=== PATIENT | female | born 1960 | race Caucasian/White ===

== ENCOUNTER 2016-10-07 19:19 | Emergency (ER) | payer MEDICARE, MEDICAID ==
[~2016-10-07] VITALS: Ht 180.3 cm; Wt 104.3 kg
[~2016-10-07 19:19] MED LIST: ASPIRIN EC81 MG PO; CARBAMAZEPINE100 MG PO; NAPROSYN500 MG PO; NEURONTIN300 MG PO; NORCO 5-325 TA1 EACH PO; PROMETHAZINE-COD5 ML PO; TAMIFLU75 MG PO; ZOLOFT50 MG PO; [UNRECOGNIZED DRUG - OTHER]
[2016-10-07] MEDS ORDERED: PHENYTOIN SODI300 MG PO (19:40)
[2016-10-07] MEDS ORDERED: OCREVUS300 MG/10 IV (19:41)
[2016-10-07] MEDS ORDERED: PERCOCET 5-3251 EACH PO (20:16)
== END 2016-10-07 20:48 | disposition home or self-care (01) ==
LOC: ED 19:19
DX: S82.432A Displaced oblique fracture of shaft of left fibula, initial encounter for closed fracture (principal); S82.831A Other fracture of upper and lower end of right fibula, initial encounter for closed fracture; Z79.899 Other long term (current) drug therapy; Z79.82 Long term (current) use of aspirin; Z98.51 Tubal ligation status; Z87.891 Personal history of nicotine dependence; W01.0XXA Fall on same level from slipping, tripping and stumbling without subsequent striking against object, initial encounter
CPT/HCPCS: 73610; 99283

== ENCOUNTER 2016-11-25 09:45 | Day surgery (SDC) | payer MEDICARE, MEDICAID ==
[~2016-11-25] VITALS: Ht 180.3 cm; Wt 99.8 kg
[~2016-11-25 09:45] MED LIST changes: +OCREVUS300 MG/10 IV; +PERCOCET 5-3251 EACH PO; +PHENYTOIN SODI300 MG PO
--- NOTE | 2016-11-25 13:07 | NUR ---
11/25/16 1307 Ofelia Tobar 1301-PATIENT ARRIVED TO PACU ON 6L MASK O2 SAT 100% PATIENT REACTIVE WITH EYES OPEN AND FALLS BACK ASLEEP. DRESSING CDI WITH BOOT IN PLACE. ICE APPLIED. 1306-PATIENT AWAKE DENIES PAIN OR NAUSEA ABLE TO WIGGLE TOES, WARM
[2016-11-25] MEDS ORDERED: HYDROCODON-ACE1 EA11 PO (13:08)
--- NOTE | 2016-11-27 10:52 | OR ---
[facility] [address], [place] [address] Signed DATE OF PROCEDURE: 11/25/16 PREOPERATIVE DIAGNOSIS: Nonunion, left lateral malleolus. POSTOPERATIVE DIAGNOSIS: Nonunion, left lateral malleolus. PROCEDURE PERFORMED: Open reduction and internal fixation, left ankle. SURGEON: Amaris Ribeiro MD. OB GYN PHYSICIAN ASSISTANT: Jacklyn Jolly PA-C. Jacklyn was present for the entire procedure, was critical in positioning, retraction, and wound closure. ANESTHESIA: General. TOURNIQUET TIME: 37 minutes. IMPLANT: Seven-hole 1/3rd tubular plate with 7 screws. BRIEF HISTORY Yohan is a 55-year-old female wi th bilateral ankle fractures. Due to her significant MS, we elected to treat these non-operatively. The right wound is healing well; however, the left showed no evidence of any healing on x-ray. Risks and benefits of operative discussed with her. She elected to proceed. DESCRIPTION OF PROCEDURE Once consent was obtained, she was taken to operating room, and after adequate anesthesia, was placed on operating table. All downside pressure points well padded. The left leg was placed in well-padded proximal thigh tourniquet. Prepped and draped in a standard sterile fashion. The leg was exsanguinated using Esmarch bandage. Tourniquet inflated to 250 mm initially; however, she continued to have bleeding, so we released the tourniquet and re-Esmarch up to 300 mm on t he tourniquet. The incision was made through the skin and subcutaneous tissue, and centered over the fracture. This was taken down to the periosteum and the periosteum was elevated anteriorly and posteriorly. The nonunion was taken down using Dee and F r eer. The lateral malleolus was mobilized and reduced, held with a clamp. The plate was clamped to the lateral aspect of the lateral malleolus and centered. This was checked using image intensifier. Reduction of the mortise was good. The screws were then p l aced. We placed cortical screws proximally 1 cancellous screw where the bone was particularly soft and then 2 distal locking screws. We did get excellent fixation. The wound was closed again with antibiotic solution. Final radiograph showed good reduction and placement of the plate. Electronically Signed By: AMARIS RIBEIRO MD 11/27/16 1052 PATIENT NAME: YOHAN DYSON OPERATIVE REPORT DATE OF : 56 PHYSICIAN: AMARIS RIBEIRO MD REPORT #: [id number] REPORT IS CONFIDENTIAL AND NOT TO BE RELEASED WITHOUT AUTHORIZATION [address] [address] Signed Screw lengths were appropriate. The periosteum was then closed using 2-0 Monocryl, subcutaneous tissue with 2-0 Monocryl, and skin with dmitri. Wound dressed with Mepilex Ag dressing, ABD, and Allen wrap. She was placed back in a fracture boot and taken to recovery in satisfactory condition. All sponge, needle, and instrument counts were correct. Amaris Ribeiro MD BA/Thom /[id number] cc: Herson Escamilla MD Electronically Signed By: AMARIS RIBEIRO MD 11/27/16 1052 PATIENT NAME: YOHAN DYSON OPERATIVE REPORT DATE OF : 56 PHYSICIAN: AMARIS RIBEIRO MD REPORT #: [id number] REPORT IS CONFIDENTIAL AND NOT TO BE RELEASED WITHOUT AUTHORIZATION
== END 2016-11-25 16:15 | disposition home or self-care (01) ==
LOC: DS 09:45
PROVIDERS: Specialist
PROC: 0QSK0ZZ Reposition Left Fibula, Open Approach (ICD-10-PCS; principal; 2016-11-25 11:30)
DX: S82.62XA Displaced fracture of lateral malleolus of left fibula, initial encounter for closed fracture (principal); G35 Multiple sclerosis; F32.9 Major depressive disorder, single episode, unspecified; M81.0 Age-related osteoporosis without current pathological fracture; Z98.890 Other specified postprocedural states
CPT/HCPCS: 01480; 73600; C1713; J0690; J1100; J1170; J1885; J2250; J2704; J2795; J3010; J7120

== ENCOUNTER 2016-12-31 11:04 | Emergency (ER) | payer MEDICARE, MEDICAID ==
[~2016-12-31] VITALS: Ht 180.3 cm; Wt 99.8 kg
[~2016-12-31 11:04] MED LIST changes: +HYDROCODON-ACE1 EA11 PO
== END 2016-12-31 11:26 | disposition home or self-care (01) ==
LOC: ED 11:04
DX: M25.519 Pain in unspecified shoulder (principal); Z00.8 Encounter for other general examination

== ENCOUNTER 2022-11-27 16:06 | Emergency (ER) | payer MEDICARE, OTHER ==
[~2022-11-27] VITALS: Ht 180.3 cm; Wt 60.6 kg
[2022-11-27] MEDS ORDERED: KESIMPTA P20 MG/0.4 SQ (16:40)
[2022-11-27] MEDS ORDERED: OSTERA TABLET1 EACH PO (16:44)
[2022-11-27 17:26] LABS: INFLUENZA B NAA NEGATIVE (NEGATIVE); RESPIRATORY SYNCYTIAL VIR NAA NEGATIVE (NEGATIVE)
[2022-11-27 19:56] LABS: HEMATOCRIT 39.8 % (35.0-50.0); HEMOGLOBIN 13.4 g/dL (12.0-18.0); MCH 29.8 (27-36); MCHC 33.6 g/dl (30-36); MCV 88.4 fl (81-99); PLATELET COUNT 322 K/uL (140-440); RBC 4.51 M/ul (4.3-5.7); RDW 13.2 (10.5-15.0)
[2022-11-27 20:11] LABS: ALBUMIN 3.3 g/dL (3.4-5.0); ALBUMIN/GLOBULIN RATIO 0.72 (1.1-2.4); ANION GAP 17.2 (7-21); BILIRUBIN, TOTAL 1.1 ng/dL (0.2-1.0); BUN/CREATININE RATIO 20.31 (6.0-28.6); CALCIUM 9.2 mg/dL (8.5-10.1); CREATININE, SERUM 0.64 mg/dL (0.55-1.02); MAGNESIUM 1.8 mg/dL (1.8-2.4); POTASSIUM 3.2 mmol/L (3.5-5.1); PROTEIN, TOTAL 7.9 g/dL (6.4-8.2)
[2022-11-27 20:13] LABS: BANDS, MANUAL DIFF 9; LYMPHOCYTES, MANUAL DIFF 14; MONOCYTES, MANUAL DIFF 6; NEUTROPHILS, MANUAL DIFF 71
[2022-11-27] MEDS ORDERED: ONDANSETRON ODT8 MG PO (20:46)
[2022-11-27 21:20] VITALS: BP 159/88
== END 2022-11-27 21:05 | disposition home or self-care (01) ==
LOC: ED 16:06
PROVIDERS: Emergency Medicine; Family Medicine
DX: B34.9 Viral infection, unspecified (principal); Z20.822 Contact with and (suspected) exposure to COVID-19; Z87.891 Personal history of nicotine dependence; Z79.899 Other long term (current) drug therapy
CPT/HCPCS: 36415; 80053; 83735; 85025; 87502; 99283; A9270; J7121; U0002

== ENCOUNTER 2024-09-10 05:30 | Inpatient (IN) | payer MEDICARE, OTHER ==
[~2024-09-10] VITALS: Ht 180.3 cm; Wt 97.0 kg
[2024-09-10] VITALS (8 sets, daily range): BP systolic 142–171; BP diastolic 69–83
[~2024-09-10 05:30] MED LIST changes: +KESIMPTA P20 MG/0.4 SQ; +ONDANSETRON ODT8 MG PO; +VITAMIN D325 MCG PO
[2024-09-10] MEDS ORDERED: SODIUM CHLORIDE 0.9% 1,000 ML IV ONE ×2 (05:45→06:15)
[2024-09-10] MEDS ORDERED: MORPHINE SULFATE 4 MG/ML VIAL IV ONE (05:45)
[2024-09-10] MEDS ORDERED: PROCHLORPERAZINE EDISYLATE 10 MG/2 ML VIAL IV ONE (05:45)
[2024-09-10 05:52] LABS: BASOPHILS 0.3 % (0.1-1.2); EOSINOPHILS 0.1 % (0.7-5.8); LYMPHOCYTES 6.3 % (19.3-51.7); MCH 29.2 PG (25.6-32.2); MCHC 33.4 g/dL (32.2-35.5); MCV 87.3 fL (79.4-94.8); MONOCYTES 2.9 % (4.7-12.5); NEUTROPHILS 89.5 % (34.0-71.1); RBC 4.01 M/uL (3.93-5.22)
[2024-09-10 05:57] LABS: BLOOD/HGB, URINE TRACE-I (Negative); KETONE, URINE TRACE (Negative); LEUK ESTERASE, URINE MODERATE (negative); NITRITE, URINE POSITIVE (negative)
[2024-09-10 06:07] LABS: BACTERIA, URINE 4+ /hpf (negative); CASTS, URINE NONE SEEN \\lpf; CRYSTALS, URINE NONE SEEN (0-1+); EPITHELIAL CELLS, URINE SQUAMOUS 1+ /lpf (0-1+); REFLEX CULTURE, URINE Yes (No)
[2024-09-10 06:08] LABS: ALT (SGPT) 15.0 U/L (14-59); AST (SGOT) 18.0 U/L (15-37); GLOMERULAR FILTRATION RATE,EST 97.0 mL/min (>60); PROTEIN, TOTAL 6.7 g/dL (6.4-8.2); UREA NITROGEN 9.0 mg/dL (7-18)
[2024-09-10] MEDS ORDERED: ACETAMINOPHEN 325 MG TAB PO ONE (06:15)
[2024-09-10] MEDS ORDERED: SODIUM CHLORIDE 0.9% 1,000 ML IV SCH (08:30)
[2024-09-10] MEDS ORDERED: ACETAMINOPHEN 325 MG TAB PO PRN (08:30)
[2024-09-10] MEDS ORDERED: PROCHLORPERAZINE EDISYLATE 10 MG/2 ML VIAL IV PRN (08:30)
[2024-09-10] MEDS ORDERED: CARBAMAZEPINE200 M3 PO (08:41)
[2024-09-10] MEDS ORDERED: GABAPENTIN300 MG PO (08:42)
[2024-09-10] MEDS ORDERED: SERTRALINE HCL100 MG PO (08:43)
[2024-09-10] MEDS ORDERED: ENOXAPARIN SODIUM 40 MG/0.4 ML SYR SUB-Q SCH (09:00)
--- NOTE | 2024-09-10 09:06 | NUR ---
PT TO MEDSUR ROOM, [facility] AND MASS SPECTROSCOPIST. PT ABLE TO ANSWER HX QUESTIONS WITH ASSISTANCE FROM .
--- NOTE | 2024-09-10 10:36 | NUR ---
PUREWICK AND DEPEND IN PLACE. CALL LIGHT WITHIN REACH.
--- NOTE | 2024-09-10 10:45 | NUR ---
Spoke with Perla and her spouse Edinson. They live in a mobile home with ramps. Pt has MS and spouse has placed grab bars throughout the home. Pt has retracted area on her upper l lip that looks like a cleft lip. Per spouse this is a nerve issue and is also related to a medication she is taking. Per spouse he is disabled and stays with pt all day every day. Pt denies needs. They do use the food bank and food stamps. They deny other financial issues or safety concerns. Pt plans on dc to home when medically cleared of pyelonephritis and UTI. Pt requests a new wc as she uses one inside the home and one outside. Both are old and were purchased by the spouse. OT is in the room and feel pt would be better served with a custom fit wc due to her MS. OT assisted with an RX for the wc and required documentation to go to a [employer] company. Pt would like to use [employer]. Order for custom fit wc, OP therapy for fitting of wc, and OP visit for gait training completed. I called Dr. Us's office as per Deepali at [facility] ordered needs to be signed by the PCP. I will fax the correct paper work to Dr. Us, Dr. Miles cosigned all paperwork. I added the fax numbers to the face sheet sent to Dr. Us and requested when RX and orders for OP completed they fax all to [facility] [phone] [facility] [phone].
--- NOTE | 2024-09-10 11:25 | NUR ---
PHYSICAL THERAPY AT THE BEDSIDE. PT STATES NO CURRENT NEEDS, CALL LIGHT WITHIN REACH.
--- NOTE | 2024-09-10 11:31 | NUR ---
PATIENT IN BED AT THIS TIME. GAS WELDING EQUIPMENT MECHANIC PLACED NEW PUREWICK FOR PATIENT. CALL LIGHT WIHTIN REACH, NO FURTHER NEEDS AT THIS TIME.
--- NOTE | 2024-09-10 11:42 | NUR ---
PT NOT AVAILABLE FOR VISIT. PROVIDED PRAYER.
[2024-09-10] MEDS ORDERED: NEOSPORIN OIN28.3 GM TOP (11:46)
[2024-09-10] MEDS ORDERED: NAC600 MG PO (11:48)
[2024-09-10] MEDS ORDERED: BACLOFEN10 MG PO (11:48)
--- NOTE | 2024-09-10 11:48 | NUR ---
MED REC COMPLETE
[2024-09-10] MEDS ORDERED: PHARMACY RENAL DOSE ADJUSTMENT 1 DOSE MISC PO SCH (12:00)
--- NOTE | 2024-09-10 15:30 | NUR ---
PT TELLS THIS RN THAT HE BROUGHT PT HOME MEDICATIONS AND STATES, "I JUST GAVE HER NORMAL MEDICATIONS TO HER AND SHE TOOK THEM SINCE SHE HASN'T HAD THEM YET TODAY". THIS RN EDUCATES PT AND THAT MEDICATIONS NEED TO BE ADMINISTERED BY STAFF WHILE ADMITTED, PT AND VERBALIZE UNDERSTANDING AND PT STATES "I ONLY BROUGHT THE PILLS FOR THIS MORNING THAT SHE DIDN'T TAKE, SO I DON'T HAVE ANY OTHERS". THIS RN UPDATES DR. GARY MD STATES THAT PT AND HER STATED THAT THEY WOULD BRING HOME MEDICATIONS FOR PHARMACY TO VERIFY IN ORDER TO USE THE PT'S HOME MEDICATIONS RATHER THAN HOSPITAL PROVIDED. THIS RN SPEAKS WITH PT AND HER ABOUT BRINGING IN MEDICATIONS FOR VERIFICATION BY PHARMACY AND FOR STAFF TO GIVE PER ORDERS. PT AND STATE "WE CHANGED OUR MINDS AFTER WE TALKED TO THE DOCTOR, SO WE ACTUALLY WANT TO USE THE MEDICATIONS YOU GUYS HAVE HERE INSTEAD OF BRINGING HOME MEDS IN". THIS RN FURTHER EDUCATES PT AND HER ON IMPORTANCE OF NOT TAKING MEDICATIONS THAT ARE NOT ORDERED AND ARE NOT GIVEN BY STAFF WHILE INPATIENT FOR SAFETY REASONS. PT AND VERBALIZE UNDERSTANDING. MEDICATIONS THAT PT TOOK FROM HOME AT APPROXIMATELY 1510 ARE LISTED BELOW. CARBAMAZEPINE 400MG GABAPENTIN 600MG TYLENOL 1,000MG MULTIVITAMIN (X1)
--- NOTE | 2024-09-10 16:27 | NUR ---
UR CLINICAL REVIEW: 2 MN IKE, MEETS INPT FOR UTI, PYEONEPHRITIS WITH SEPSIS IV FLUIDS, IV ANTIBIOTICS, CULTURES, TREND LABS, LACTIC ACID 3.7 TO 2.8, CT POSITIVE FOR PYELONEPHRITIS MEDICARE INPT 09/10/24 @ 0824 ORDER MATCHES REG NO AUTH REQUIRED PER MEDICARE RULES PLAN TO DC TO HOME WHEN MEDICALLY READY.
--- NOTE | 2024-09-10 16:35 | NUR ---
DR. VEGA TO BEDSIDE.
[2024-09-10] MEDS ORDERED: BACLOFEN 10 MG TAB PO PRN (16:45)
--- NOTE | 2024-09-10 19:15 | NUR ---
REPORT RECEIVED FROM BESSIE MEAD. pt RESTING IN THE BED. BOARD UPDATED. pt DENIES ANY OTHER NEEDS AT THIS TIME. CALL LIGHT WITHIN REACH.
[2024-09-10] MEDS ORDERED: carBAMazepine 200 MG TAB PO SCH (21:00)
[2024-09-10] MEDS ORDERED: GABAPENTIN 600 MG TAB PO SCH (21:00)
--- NOTE | 2024-09-10 21:00 | NUR ---
ASSESSMENT AND VITAL SIGNS DONE. pt RESTING IN THE BED. WATER REFRESHED. SCHEDULED MEDS ADMINISTERED. pt DENIES ANY OTHER NEEDS AT THIS TIME. IV ASSESSED, WNL. pt DENIES ANY OTHER NEEDS AT THIS TIME. CALL LIGHT WITHIN REACH. IVF INFUSING PER ORDER.
--- NOTE | 2024-09-10 22:35 | NUR ---
pt RESTING IN THE BED. pt DENIES ANY NEEDS AT THIS TIME. CALL LIGHT WITHIN REACH.
[2024-09-11] VITALS (12 sets, daily range): BP systolic 163–173; BP diastolic 76–85
--- NOTE | 2024-09-11 00:12 | NUR ---
pt RESTING IN THE BED WITH EYES CLOSED. RR EVEN AND UNLABORED. CALL LIGHT WITHIN REACH.
--- NOTE | 2024-09-11 01:58 | NUR ---
pt CALLED AND C/O 5/10 PAIN. PRN PAIN MEDS ADMINISTERED. VITAL SIGNS DONE. ASSESSMENT DONE. NEW PURE WICK PLACED. BRIEF CHANGED. pt DENIES ANY OTHER NEEDS AT THIS TIME. CALL LIGHT WITHIN REACH.
--- NOTE | 2024-09-11 03:05 | NUR ---
pt RESTING IN THE BED WITH EYES CLOSED. RR EVEN AND UNLABORED. CALL LIGHT WITHIN REACH
--- NOTE | 2024-09-11 04:17 | NUR ---
pt RESTING IN THE BED WITH EYES CLOSED. RR EVEN AND UNLABORED. CALL LIGHT WITHIN REACH.
[2024-09-11 05:19] LABS: BASOPHILS 0.7 % (0.1-1.2); EOSINOPHILS 0.2 % (0.7-5.8); LYMPHOCYTES 9.7 % (19.3-51.7); MCH 28.9 PG (25.6-32.2); MCHC 32.2 g/dL (32.2-35.5); MCV 89.7 fL (79.4-94.8); MONOCYTES 9.8 % (4.7-12.5); NEUTROPHILS 79.2 % (34.0-71.1); RBC 3.70 M/uL (3.93-5.22)
[2024-09-11 05:34] LABS: ALT (SGPT) 16.0 U/L (14-59); AST (SGOT) 26.0 U/L (15-37); GLOMERULAR FILTRATION RATE,EST 104.0 mL/min (>60); PHOSPHORUS, INORGANIC 3.1 mg/dL (2.5-4.9); PROTEIN, TOTAL 6.3 g/dL (6.4-8.2); UREA NITROGEN 8.0 mg/dL (7-18)
--- NOTE | 2024-09-11 06:43 | NUR ---
pt RESTING IN THE BED. pt VISITING WITH FAMILY. VITAL SIGNS DONE. pt DENIES ANY OTHER NEEDS AT THIS TIME. CALL LIGHT WITHIN REACH.
--- NOTE | 2024-09-11 07:05 | NUR ---
RECIEVED REPORT FROM BOSTON OLSON. PT RESTING IN BED WITH EYES CLOSED, CALL LIGHT WITHIN REACH.
[2024-09-11] MEDS ORDERED: ACETYLCYSTEINE 200 MG/ML PO SCH (09:00)
[2024-09-11] MEDS ORDERED: SERTRALINE HCL 50 MG TAB PO SCH (09:00)
[2024-09-11] MEDS ORDERED: POTASSIUM CHLORIDE 40 MEQ,LIDOCAINE HCL 1% 40 MG in DEXTROSE 5% 250 ML IV ONE (09:00)
[2024-09-11] MEDS ORDERED: MAGNESIUM SULFATE 2 GM/50 ML BAG IV ONE (09:00)
--- NOTE | 2024-09-11 09:41 | NUR ---
PT SITTING IN BED VISITING WITH . WATER REFRESHED AND VS TAKEN. CALL LIGHT WITHIN REACH. PT HAS NO OTHER REQUESTS AT THIS TIME.
--- NOTE | 2024-09-11 09:50 | NUR ---
DR VEGA NOTIFIED OF PT'S BP AND TEMP. STATES HE WILL EVALUATE PT SHORTLY.
--- NOTE | 2024-09-11 10:10 | NUR ---
PT TAKES PO MEDICATIONS W/O DIFFICULTY. PT HAS SMEAR OF BM PRESENT, CLEANED AND DAV CARE COMPLETED BY THIS RN. NEW BRIEF IN PLACE, NEW DEPENDS IN PLACE. PT DENIES PAIN AT THIS TIME. PT AND DENY ANY CURRENT NEEDS, CALL LIGHT WITHIN REACH.
--- NOTE | 2024-09-11 11:55 | NUR ---
PT STATES SHE IS FEELING MILDLY NAUSEAS, COMPAZINE GIVEN PER PT REQUEST. PT STATES NO FURTHER NEEDS AT THIS TIME, CALL LIGHT WITHIN REACH.
--- NOTE | 2024-09-11 21:42 | NUR ---
Awake, alert and oriented to all. pleasant and cooperative. On room air, lungs clear bilat, no sob with exertion. abd soft, donna, LBm today. Incontinent. pure wick in place, draining clear yellow urine. bruising back healing. Lupper lip wound area no changes. took meds well, LE elevated sligth trace edema to L ankle. IVF infusing RA w/o problems. LH SL patent. slight edema to hand. turned and repositioned w/o problems. no c/o pain
--- NOTE | 2024-09-11 22:58 | NUR ---
RESTING, EYES CLOSED, NO S/SX DISTRESS, ON ROOM AIR. IVF INFUSING W/O PROBLEMS. PURE WICK IN PLACE, ROOMING IN
[2024-09-12] VITALS (9 sets, daily range): BP systolic 149–185; BP diastolic 76–92
--- NOTE | 2024-09-12 01:41 | NUR ---
PATIENT LAYING IN BED. PATIENTS BRIEF AND PUREWICK WERE CHANGED. PERICARE WAS DONE. PATIENTS CALL LIGHT IS WITHIN REACH AND NO FURTHER NEEDS AT THIS TIME.
[2024-09-12 05:15] LABS: BASOPHILS 0.6 % (0.1-1.2); EOSINOPHILS 0.4 % (0.7-5.8); LYMPHOCYTES 16.6 % (19.3-51.7); MCH 28.9 PG (25.6-32.2); MCHC 32.6 g/dL (32.2-35.5); MCV 88.5 fL (79.4-94.8); MONOCYTES 15.4 % (4.7-12.5); NEUTROPHILS 66.7 % (34.0-71.1); RBC 3.84 M/uL (3.93-5.22)
[2024-09-12 05:39] LABS: ALT (SGPT) 15.0 U/L (14-59); AST (SGOT) 19.0 U/L (15-37); GLOMERULAR FILTRATION RATE,EST 106.0 mL/min (>60); PROTEIN, TOTAL 6.4 g/dL (6.4-8.2); UREA NITROGEN 4.0 mg/dL (7-18)
--- NOTE | 2024-09-12 05:51 | NUR ---
PATIENT IS LAYING IN BED. PATIENTS VITAL SIGNS AND I&OS WERE DONE. PATIENTS BRIEF WAS CHECKED AND IT WAS DRY. PATIENTS CALL LIGHT IS WITHIN REACH AND NO FURTHER NEEDS AT THIS TIME.
--- NOTE | 2024-09-12 05:53 | NUR ---
Pt BP 185/92, medicated with PRN Hydralazine 10mg IV. Pt denies c/o flashing lights or h/a at this time. Instructed on hydralizine precautions, stated understanding.
--- NOTE | 2024-09-12 06:09 | NUR ---
PT'S TO RN STATION, STATES THAT PT IS HAVING A HEADACHE. SILK PRESSER TO ROOM, PT RATES HEADACHE 08/26. PRN ADMINISTERED. SEE EMAR. PT STATES SHE FEELS SLIGHTLY LIGHT HEADED. BP CHECKED PER REQUEST AFTER PRN BP MEDICATION, 183/83, MAP 109. PT AND DENY OTHER NEEDS AT THIS TIME. CALL LIGHT IN REACH.
--- NOTE | 2024-09-12 07:12 | NUR ---
RECIEVED REPORT FROM BOSTON MOSQUEDA. PT LYING IN BED, AT THE BEDSIDE. PT DENIES PAIN OR NAUSEA AT THIS TIME. PUREWICK REMAINS IN PLACE, REDNESS ON L SIDE OF PANNUS IMPROVING. PT STATES NO CURRENT NEEDS, CALL LIGHT WITHIN REACH.
[2024-09-12] MEDS ORDERED: POTASSIUM CHLORIDE 40 MEQ,LIDOCAINE HCL 1% 40 MG in DEXTROSE 5% 250 ML IV ONE (09:00)
--- NOTE | 2024-09-12 12:55 | NUR ---
HOURLY ROUNDING. PATIENT IN BED, IS AT BEDSIDE. NO REQUEST FROM PATIENT AT THIS TIME CALL LIGHT PLACED WITHIN REACH
--- NOTE | 2024-09-12 18:59 | NUR ---
PT HAS SMALL BM, NEW BRIEF IN PLACE, NEW PUREWICK IN PLACE, DAV CARE COMPLETED.
--- NOTE | 2024-09-12 19:46 | NUR ---
Admin tylenol 650mg po for reports of 6/10 headache pain.
--- NOTE | 2024-09-12 20:20 | NUR ---
Patient awake sitting up in bed visiting with her , no acute distress. Vital signs are stable, afebrile. Patient reports ongoing headache, tylenol in use. Patient reports good po intact, she is able to swallow pills without difficulty. Patient denies needs, personal supplies and call light within reach.
--- NOTE | 2024-09-12 23:36 | NUR ---
Patient sleeping in bed, eyes closed, respirations non labored. at bedside sleeping. Call light within reach.
[2024-09-13] VITALS (8 sets, daily range): BP systolic 152–184; BP diastolic 75–90
--- NOTE | 2024-09-13 03:15 | NUR ---
REPORT RECIEVED FROM BOSTON SO. PATIENT RESTING IN BED WITH HER EYES CLOSED AND MOUTH OPEN, EVEN AND UNLABORED RESPIRATIONS NOTED. PATIENT AT BEDSIDE. CALL LIGHT AND PERSONAL BELONGINGS ARE WITHIN REACH.
--- NOTE | 2024-09-13 05:34 | NUR ---
LAB IN ROOM FOR BLOOD DRAW. PATIENT VITALS TAKEN AND ARE STABLE. INTAKE AND OUTPUT DOCUMENTED. ALNA MG IN ROOM TO ASSIST THIS RN WITH CHANGING PATIENT'S PUREWICK. PATIENT REPOSITIONED TO COMFORT. COFFEE PROVIDED TO PATIENT'S AT BEDSIDE. PATIENT WITHOUT FURTHER NEEDS AT THIS TIME. CALL LIGHT AND PERSONAL BELONGINGS ARE WITHIN REACH.
[2024-09-13 05:44] LABS: BASOPHILS 0.8 % (0.1-1.2); EOSINOPHILS 0.8 % (0.7-5.8); LYMPHOCYTES 31.8 % (19.3-51.7); MCH 29.2 PG (25.6-32.2); MCHC 32.8 g/dL (32.2-35.5); MCV 88.9 fL (79.4-94.8); MONOCYTES 16.2 % (4.7-12.5); NEUTROPHILS 49.9 % (34.0-71.1); RBC 3.77 M/uL (3.93-5.22)
[2024-09-13 06:02] LABS: ALT (SGPT) 12.0 U/L (14-59); AST (SGOT) 14.0 U/L (15-37); GLOMERULAR FILTRATION RATE,EST 110.0 mL/min (>60); PROTEIN, TOTAL 6.3 g/dL (6.4-8.2); UREA NITROGEN 5.0 mg/dL (7-18)
[2024-09-13] MEDS ORDERED: POTASSIUM CHLORIDE 40 MEQ,LIDOCAINE HCL 1% 40 MG in DEXTROSE 5% 250 ML IV ONE (07:45)
--- NOTE | 2024-09-13 09:05 | NUR ---
HOURLY ROUNDING. PATIENT IS SITTING IN BED, NO REQUEST AT THIS TIME. CALL LIGHT PLACED WITHIN REACH, BOARD HAS BEEN UPDATED. NO REQUEST FROMPATIENT AT THIS TIME
--- NOTE | 2024-09-13 09:37 | NUR ---
INTO SEE PATIENT. RESTING IN BED. AT BEDSIDE. PATIENT SIGNED IMM LETTER. PATIENT TO TAKE HOME AT TIME OF DISCHARGE. NO FUTHER NEEDS.
--- NOTE | 2024-09-13 09:40 | NUR ---
ADMINISTERED MORNING MEDS WO DIFF. PT STATES BREAKFAST WAS GOOD. IN ROOM. ASSESS COMPLETE. PT STATES SHE WILL SIT IN CHAIR FOR A BIT TODAY.
--- NOTE | 2024-09-13 10:08 | NUR ---
HOURLY ROUNDING. PATIENT WAS A TWO PERSON TRANSFER HER HSUBAND AND I TRANSFERED PATIENT FROM THE BED TO THE RECLINER CHAIR. PATIENT WAS A TWO PERSON ASSIST DUE TO HAVING AN IV. PATIENT LINEND HAVE BEEN CHANGED AND ROOM TIDY. BOARD HAS BEEN UPDATED AND CALL LIGHT PLACED WITHIN REACH. NO FURTHER REQUEST FROM OR PATIENT
[2024-09-13] MEDS ORDERED: ERTAPENEM SODIUM 1 GM/10 ML VIAL IV SCH (10:14)
[2024-09-13] MEDS ORDERED: ERTAPENEM SODIUM 1 GM in SODIUM CHLORIDE 0.9% 50 ML IV SCH (10:38)
--- NOTE | 2024-09-13 12:53 | NUR ---
PT REMAINS UP IN CHAIR. DENIES CONCERNS. IN ROOM. IV INFUSING POTASSIUM.
--- NOTE | 2024-09-13 13:08 | NUR ---
HOURLY ROUNDING. PATIENT SITTING IN RECLINER, HISBAND IS AT BEDSIDE. NO REQUEST FROM PATIENT AT THIS TIME. PATIENT REPORRS FEELING BETTER. CALL LIGHT PLACED WITHIN REACH
--- NOTE | 2024-09-13 15:13 | NUR ---
PT SITTING IN BED WATCHING TV WITH . CALL LIGHT IN REACH
--- NOTE | 2024-09-13 15:40 | NUR ---
PATIENT IS SALINE LOCKED AND GOING TO IMAGING FOR HEAD CT VIA WHEELCHAIR.
--- NOTE | 2024-09-13 17:00 | NUR ---
PT SITTING UP IN BED READY FOR DINNER. GAVE TICKET FOR DOWNSTAIRS.
--- NOTE | 2024-09-13 18:04 | NUR ---
HOURLY ROUNDING. PATIENT IS NOW SITTING IN BED, NO REQUEST FROM PATIENT. CALL LIGHT HAS BEENPUT IN REACH
--- NOTE | 2024-09-13 18:18 | NUR ---
HOURLY ROUNDING. NOTICED PATIENT ONLY HAS 200ML, CHECKED PATIENT BREIF, IT WAS SOILED. CHANGED PUREWICK, DOCUMENTED PUREWICK DC TIME AND DATE/ INSERT TIME AND DATE. NOTIFIED RN. DOWNEYHED PATIENT BREIF AND GAVE A PARTIAL BATH. NO FURTHER REQUEST FROMPATIENT AT THIS TIME. CALL LIGHT PLACED WITHIN REACH
--- NOTE | 2024-09-13 18:30 | NUR ---
PT ATE MOST OF DINNER.
--- NOTE | 2024-09-13 19:15 | NUR ---
REPORT RECEIVED FROM ANGEL MEAD. pt RESTING IN THE BED. FAMILY IN THE RM. BOARD UPDATED. pt DENIES ANY NEEDS AT THIS TIME. CALL LIGHT WITHIN REACH.
--- NOTE | 2024-09-13 21:45 | NUR ---
ASSESSMENT AND VITAL SIGNS DONE. NEW IV PLACED IN LEFT WRIST. OLD IV LEAKING AND DC'D. IVF INFUSING PER ORDER. IV PRN BP MEDS ADMINISTERED PER ORDERS. SCHEDULED MEDS ADMINISTERED. pt DENIES ANY OTHER NEEDS AT THIS TIME. CALL LIGHT WITHIN REACH.
--- NOTE | 2024-09-13 23:32 | NUR ---
pt RESTING IN THE BED WITH EYES CLOSED. RR EVEN AND UNLABORED. CALL LIGHT WITHIN REACH.
--- NOTE | 2024-09-14 00:59 | NUR ---
pt RESTING IN THE BED WITH EYES CLOSED. RR EVEN AND UNLABORED. CALL LIGHT WITHIN REACH.
--- NOTE | 2024-09-14 02:50 | NUR ---
IN TO CHECK BLOOD PRESSURE WITH A RESULTS OF 175/81. PRN BP ADMINISTERED. NEW PUREWICK PLACED. NEW BREIF PLACED ON pt. pt DENIES ANY OTHER NEEDS AT THIS TIME. CALL LIGHT WITHIN REACH.
--- NOTE | 2024-09-14 04:46 | NUR ---
pt RESTING IN THE BED WITH EYES CLOSED. RR EVEN AND UNLABORED. CALL LIGHT WITHIN REACH.
[2024-09-14 05:09] VITALS: BP 160/83
[2024-09-14 05:11] VITALS: BP 160/83
[2024-09-14 05:25] LABS: BASOPHILS 0.9 % (0.1-1.2); EOSINOPHILS 1.3 % (0.7-5.8); LYMPHOCYTES 24.7 % (19.3-51.7); MCH 28.6 PG (25.6-32.2); MCHC 32.6 g/dL (32.2-35.5); MCV 87.5 fL (79.4-94.8); MONOCYTES 18.6 % (4.7-12.5); NEUTROPHILS 54.2 % (34.0-71.1); RBC 3.85 M/uL (3.93-5.22)
[2024-09-14 05:52] LABS: ALT (SGPT) 10.0 U/L (14-59); AST (SGOT) 13.0 U/L (15-37); GLOMERULAR FILTRATION RATE,EST 114.0 mL/min (>60); PROTEIN, TOTAL 6.2 g/dL (6.4-8.2); UREA NITROGEN 6.0 mg/dL (7-18)
[2024-09-14] MEDS ORDERED: MEROPENEM 1,000 MG in SODIUM CHLORIDE 0.9% 100 ML IV SCH (06:00)
--- NOTE | 2024-09-14 06:15 | NUR ---
VITAL SIGNS DONE. IV ABX INFUSING PER ORDER. NEW PURE WICK PLACED. BRIEF CHANGED. pt REPOSITIONED IN THE BED. pt DENIES ANY OTHER NEEDS AT THIS TIME. CALL LIGHT WITHIN REACH.
--- NOTE | 2024-09-14 07:25 | NUR ---
VERBAL REPORT RECEIVED FROM BOSTON OLSON. PT RESTS IN BED WITH EYES CLOSED, RESP EVEN AND UNLABORED.
[2024-09-14] MEDS ORDERED: POTASSIUM BICARBONATE/CIT AC 20 MEQ TABEF PO ONE (08:30)
[2024-09-14] MEDS ORDERED: TRIMETHOPRIM/SULFAMETHOXAZOLE 1 EA TAB PO SCH (09:00)
[2024-09-14] MEDS ORDERED: METOPROLOL TARTRATE 25 MG TAB PO SCH (09:00)
[2024-09-14 09:09] VITALS: BP 167/96
--- NOTE | 2024-09-14 11:08 | NUR ---
PATIENT ALERT AND ORIENTED IN BED. DISCUSSED POTENTIAL DC TO HOME TODAY. STATES HER WILL TAKE HER HOME. DENIES ANY CM NEEDS AT THIS TIME. DID UPDATE HER THAT INFORMATION WAS SENT TO HER PCP, DR. MACK, FOR A SPECIAL ORDER WHEELCHAIR THAT PT IS RECOMMENDING.
[2024-09-14 11:38] VITALS: BP 164/77
[2024-09-14] MEDS ORDERED: METOPROLOL TART25 MG PO (12:05)
[2024-09-14] MEDS ORDERED: SULFAMETHOXAZO1 EAC1 PO (12:05)
[2024-09-14] MEDS ORDERED: LISINOPRIL10 MG PO (12:06)
--- NOTE | 2024-09-14 13:20 | NUR ---
DISCUSSED DISCHARGE INSTRUCTIONS WITH PT AND SPOUSE, BOTH VERBALIZE UNDERSTANDING. VSS. IV REMOVED, TIP INTACT, GAUZE AND COBAN DRESSING APPLIED TO SITE, PT TOLERATED WELL. PT ASSISTED TO DRESS. SPOUSE GATHERS ALL BELONGINGS AND LEAVES WITH BELONGINGS. PT LEAVES UNIT VIA WHEELCHAIR ESCORTED BY THIS RN TO PRIVATE CAR DRIVEN BY SPOUSE. PT LEAVES IN NO APPARENT DISTRESS.
== END 2024-09-14 13:20 | disposition home or self-care (01) | DRG 872 ==
LOC: ED 05:30 → MS 08:28
PROVIDERS: Family Medicine; ADMIT Family Medicine; ATTEND Family Medicine
DX: A41.9 Sepsis, unspecified organism (principal); N12 Tubulo-interstitial nephritis, not specified as acute or chronic; Z16.12 Extended spectrum beta lactamase (ESBL) resistance; E87.6 Hypokalemia; R73.9 Hyperglycemia, unspecified; G35 Multiple sclerosis; K80.20 Calculus of gallbladder without cholecystitis without obstruction; G50.0 Trigeminal neuralgia; M89.8X8 Other specified disorders of bone, other site; K76.89 Other specified diseases of liver; I10 Essential (primary) hypertension; R51.9 Headache, unspecified; Z87.891 Personal history of nicotine dependence; Z98.51 Tubal ligation status; Z82.49 Family history of ischemic heart disease and other diseases of the circulatory system; Z83.3 Family history of diabetes mellitus; Z79.899 Other long term (current) drug therapy
CPT/HCPCS: 36415; 70450; 74177; 80053; 81001; 83036; 83605; 83690; 83735; 84100; 85025; 87088; 97110; 97162; 97166; 97530; 97535; A9270; J0360; J0696; J0780; J1335; J1650; J2185; J2270; J2405; J3475; J3480; J3490; J7030; J7060; Q9967